=== PATIENT | female | born 1995 | race Caucasian/White ===

== ENCOUNTER 2018-04-23 23:52 | Emergency (ER) | payer OTHER ==
[~2018-04-23] VITALS: Ht 157.5 cm; Wt 65.9 kg
[2018-04-24 00:24] VITALS: TEMP 96.7
[2018-04-24 00:50] VITALS: BP 100/66; PULSE 72
[2018-04-24] MEDS ORDERED: ADDERALL XR30 MG PO (00:50)
[2018-04-24] MEDS ORDERED: RITALIN10 MG PO (00:50)
== END 2018-04-24 01:20 | disposition home or self-care (01) ==
LOC: COL.ER 23:52
DX: F10.129 Alcohol abuse with intoxication, unspecified (principal); F90.9 Attention-deficit hyperactivity disorder, unspecified type; Z79.899 Other long term (current) drug therapy; Y90.7 Blood alcohol level of 200-239 mg/100 ml
CPT/HCPCS: J2405; J7030